=== PATIENT | male | born 1965 | race Caucasian/White ===

== ENCOUNTER → 2016-09-28 | Outpatient (CLI) | payer SELFPAY ==
--- NOTE | 2016-09-28 14:43 | DI ---
XR HIP COMPLETE MIN 2VW U/L,09/28/2016 1:57 PM: Clinical History: Left hip joint pain. Previous Exam: None at this facility. Findings: 3 views of the left hip are obtained, and demonstrate anatomic alignment without fractures. There is new bone formation at the head neck junction of both proximal femora. There is no fracture identified . There is some loss of joint space and some osteophyte formation. A non-obstructive bowel gas pattern is seen. Skeletal structures are unremarkable. 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
== END ==
LOC: MOB RAD 14:15
PROVIDERS: ATTEND Physician Assistant Medical
DX: M25.552 Pain in left hip (principal); M25.852 Other specified joint disorders, left hip
CPT/HCPCS: 73502

== ENCOUNTER → 2016-10-17 | Outpatient (CLI) | payer SELFPAY ==
--- NOTE | 2016-10-17 20:03 | DI ---
LUMBAR SPINE SERIES, 10/17/2016 10:20 AM: Clinical History: Left leg weakness. Previous Exam: None at this facility. 4 views are submitted. The vertebral bodies are of normal height and size. There is mild to moderate disc space narrowing at L1-2, L3-4, and L5-S1. The remaining disc spaces are normal in height. There is a grade 1 reverse spondylolisthesis at L5-S1. The pedicles and posterior elements are unremarkable . Both SI joints are normal. Readin. Chronic disc space narrowing at L1-2, L3-4, and L5-S1. 2. Grade 1 reverse spondylolisthesis at L5-S1.
== END ==
LOC: RAD 10:16
PROVIDERS: ATTEND Obstetrics & Gynecology Gynecology
DX: R53.1 Weakness (principal); M48.06 Spinal stenosis, lumbar region; M43.16 Spondylolisthesis, lumbar region
CPT/HCPCS: 72110

== ENCOUNTER → 2016-11-08 | Outpatient (CLI) | payer SELFPAY ==
--- NOTE | 2016-11-08 12:25 | DI ---
CT HEAD W/O CONTRAST,11/08/2016 11:57 AM: Clinical History: Right parietal headache and dizziness Previous Exam: None at this facility. Findings: Multiple helically acquired CT images are obtained through the brain without contrast, and demonstrat e diffuse age-related volume loss. There is no mass, hemorrhage or midline shift. The surrounding sof t tissue and osseous structures are unremarkable. There is mild leftward deviation of the bony nasal septum. Impression: Mild diffuse age-related volume loss otherwise unremarkable.
== END ==
LOC: RAD 11:51
PROVIDERS: ATTEND Nurse Practitioner Family
DX: R51 Headache (principal); R42 Dizziness and giddiness
CPT/HCPCS: 70450